=== PATIENT | female | born 1995 | race Caucasian/White ===

== ENCOUNTER 2021-10-30 09:36 | Emergency (ER) | payer OTHER, SELFPAY ==
[2021-10-30 10:06] VITALS: BP 117/75; PULSE 72; RESP 18; TEMP 36.2; O2SAT 98; BMI 36.0
--- NOTE | 2021-10-30 12:01 | DI.US.S_ITS ---
PROCEDURE: US BREAST LT LIMITED COMPARISON: None. INDICATIONS: left breast pain, no injury, breast fed 1 yr ago. FINDINGS: The entire left breast is scanned. No abnormalities are seen. No abnormal nodules or fluid collections are seen. IMPRESSION: No imaging explanation is found for the patient's presenting history breast pain. Dictated by: Primitivo Cedeno M.D. on 10/30/2021 at 11:44 Approved by: Primitivo Cedeno M.D. on 10/30/2021 at 11:44
--- NOTE | 2021-10-30 14:45 | ED.SKABFB ---
HPI - Skin/Abscess/Foreign Bdy <Kevon Kimball PA-C - Last Filed: 10/30/21 15:26> General Chief complaint: Skin/Abscess/Foreign Body Stated complaint: pain in lt breast x 1week Time Seen by Provider: 10/30/21 11:49 Source: patient Mode of arrival: Family Vehicle Limitations: no limitations History of Present Illness HPI narrative: Patient is a 26-year-old female who presents to the emergency room with complaint of left breast pain it started about a week ago. Patient states that she feels like her breast is harder than the right breast. Also feels like the pain is deep inside the breast and not on the surface. Denies any drainage from the breast and denies any major deformities in the breast. States that she left breast feed about 1 year ago she feels that the breast looks a little different than the right breast. She also states is more tender. Last menstrual period was about a month ago. Her periods are irregular because of her contraceptive device she uses. Related Data Allergies Allergy/AdvReac Type Severity Reaction Status Date / Time No Known Drug Allergies Allergy Verified 10/30/21 10:10 Review of Systems <Kevon Kimball PA-C - Last Filed: 10/30/21 15:26> Review of Systems Narrative: R.O.S.: General: No fever, chills or fatigue. Cardiovascular: No chest pain or palpitations Respiratory: No S.O.B. HEENT: No congestion, ear pain, rhinorrhea, sore throat or tinnitus Gastrointestinal: No nausea or vomiting Skin: Left-sided breast discomfort Musculoskeletal: No pain in muscles or joints, no limitation of range of motion, no paresthesia or numbness. ?? Neurological: Awake, alert and in not apparent distress. No Headaches, changes in vision or other related neurological concerns. Patient History <Kevon Kimball PA-C - Last Filed: 10/30/21 15:26> Social History Smoking Status: Never smoker Smoking Status: Never smoker alcohol intake frequency: 0-2 drinks per day Substance Use Type: does not use Exam <VANCE Stevens Last Filed: 10/30/21 15:26> Narrative Exam Narrative: Physical Exam: ? General: normal appearance, well developed, well nourished, alert, and awake. Not in acute distress. ? Head: Normocephalic, no lesions. Chest: Lungs CTAB, no rales, rhonchi or wheezes. ?? Heart: RRR, no murmurs, rubs or gallops. Eyes: PERRLA, EOM's full, conjunctivae clear. ? Neuro: Physiological, no localizing findings, CN3-12 intact. ?? Extremities: Warm, well perfused, FROM, no deformities, no edema. ?? Skin: Normal, no rashes, no lesions noted. ?? PSYCHIATRIC: The mood is good, no blunted affect. Speech is clear. Thought process is linear, thought content is appropriate. The voice is without significant inflection. Gastrointestinal: Soft; NT; ND; Pos BS with Neg. rebound tenderness. No scars or major deformities noted on Visual Inspection. Breast: Bilateral breath are symmetrical with no visual deformities noted. No masses or abnormalities discovered on palpation. Breast is however tender to touch on the distal lateral and superior lateral areas proximal to the areola and nipple. The breast also have no drainage and no erythema noted on visual inspection. Initial Vital Signs Initial Vital Signs: Vital Signs Temperature 97.2 F L 10/30/21 10:06 Pulse Rate 72 10/30/21 10:06 Respiratory Rate 18 10/30/21 10:06 Blood Pressure 117/75 10/30/21 10:06 Pulse Oximetry 98 10/30/21 10:06 Oxygen Delivery Method 10/30/21 10:06 <DO Jaquelin Zabala Last Filed: 11/05/21 08:09> Initial Vital Signs Initial Vital Signs: Vital Signs Temperature 97.2 F L 10/30/21 10:06 Pulse Rate 72 10/30/21 10:06 Respiratory Rate 18 10/30/21 10:06 Blood Pressure 117/75 10/30/21 10:06 Pulse Oximetry 98 10/30/21 10:06 Oxygen Delivery Method 10/30/21 10:06 Course <Kevon Kimball PA-C - Last Filed: 10/30/21 15:26> Orders Ordered: ED Orders 10/30/21 12:01 breast LT limited Stat Vital Signs Vital signs: Vital Signs - 8 hr 10/30/21 10:06 Temperature 97.2 F L Pulse Rate 72 Respiratory Rate 18 Blood Pressure 117/75 Pulse Oximetry 98 Oxygen Delivery Method Room Air <DO Jaquelin Zabala Last Filed: 11/05/21 08:09> Orders Ordered: ED Orders 10/30/21 12:01 US breast LT limited Stat Vital Signs Vital signs: Vital Signs - 8 hr 10/30/21 10:06 Temperature 97.2 F L Pulse Rate 72 Respiratory Rate 18 Blood Pressure 117/75 Pulse Oximetry 98 Oxygen Delivery Method Room Air MDM - Skin/Abscess/Foreign Bdy <Kevon Kimball PA-C - Last Filed: 10/30/21 15:26> Lab Data Labs: Point of Care Testing Test Results Negative Imaging Data US breast: Radiologist's Impression: PROCEDURE: US BREAST LT LIMITED ? COMPARISON: None. ? INDICATIONS: left breast pain, no injury, breast fed 1 yr ago. ? FINDINGS: The entire left breast is scanned.? No abnormalities are seen.? No abnormal nodules or fluid collections are seen. ? ? ? IMPRESSION: No imaging explanation is found for the patient's presenting history breast pain. ? ? ? Dictated by: Primitivo Cedeno M.D. on 10/30/2021 at 11:44 ? ? Approved by: Primitivo Cedeno M.D. on 10/30/2021 at 11:44 ? MDM Narrative Medical decision making narrative: Patient is a 26-year-old female who is in emergency room today with complaint of left-sided breast pain it started about a week ago. Last menstrual period was about 1 month ago. It is not breast fed about 1 year. Takes contraceptives and does not think she is at this time. Ultrasound was done and was negative for foreign body or urgent concerns at this time. Urinalysis ordered to rule out . test negative patient to be discharged and follow up with her shoulder boner provider. Patient agrees with this plan <Ira Covarrubias DO - Last Filed: 11/05/21 08:09> Lab Data Labs: Point of Care Testing Test Results Negative Discharge Plan Departure Patient Disposition: Home Clinical Impression: Breast pain Instructions: DI for Breast Pain (Mastalgia) Activity Restrictions/Additional Instructions: *You have been diagnosed with pain in the left breast breast. Ultrasound did not reveal any foreign body or emergent concerns at this time. Urinalysis has been done to rule out and was negative for . I suggest you follow-up with your shoulder boner provider in regards to any non emergent concerns. Please return to the emergency room for any emergent concerns arise. *What to do: *Please continue to take your regular medications as directed. [ ] New medication prescriptions sent to your pharmacy: [ ] [ ] New medication written as a paper prescription [x] No new medications given *Please follow up with your primary care provider in 2-3 days, call for an appointment. Let them know you were seen in the Emergency Department and that we ask that you be seen in follow up. We will electronically transmit a record of today's note if your PCP is in our system *If you do not have a primary care provider please contact the [facility] Resource line at [phone]. They will ask some questions about your medical history and help get you set up with a doctor in the community. *Return to Emergency Department if you should have any new, worsening or concerning symptoms, such as [fever greater than 101 F, shaking chills, worsening pain, persistent vomiting or other bothersome symptoms] Referrals: ProviderGerman [Primary Care Provider] - Visit Report Forms: Patient Portal/API <Ira Covarrubias DO - Last Filed: 11/05/21 08:09> Cosign ED Attending Alyature Attestation: I was immediately available in the department for consultation. Documentation has been reviewed. Case was discussed. No obvious signs of infection. Recommended have mammogram for follow-up.
== END 2021-10-30 15:37 | disposition home or self-care (01) ==
PROVIDERS: Emergency Provider Physician Assistant
DX: N64.4 Mastodynia (principal)
CPT/HCPCS: 76642; 81025; 99281; 99283

== ENCOUNTER 2022-05-27 09:30 | Emergency (ER) | payer OTHER, SELFPAY ==
[2022-05-27 09:37] VITALS: BP 121/70; PULSE 78; RESP 19; TEMP 36.4; O2SAT 98; BMI 29.7
--- NOTE | 2022-05-27 09:39 | DI.RAD.S_ITS ---
PROCEDURE: XR KNEE RT 3V INDICATIONS: atraumatic pain TECHNIQUE: 3 views of the knee were acquired. COMPARISON: None. FINDINGS: Bones: No fractures or dislocations. No suspicious bony lesions. Soft tissues: No joint effusion. No suspicious soft tissue calcifications. IMPRESSION: No significant plain film abnormality is seen. If it would be helpful for clinical management decision making, please consider a dedicated, scheduled knee MRI for further evaluation (assuming that there is no contraindication). Dictated by: Primitivo Cedeno M.D. on 05/27/2022 at 9:38 Approved by: Primitivo Cedeno M.D. on 05/27/2022 at 9:39
--- NOTE | 2022-05-27 10:11 | ED.EXTPRO ---
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 She denies any injury. She went to knee while she was gardening 3 days ago and noticed pain almost immediately. No fever or chills. She is able to ambulate. But has noted some swelling inferiorly. Related Data Allergies Allergy/AdvReac Type Severity Reaction Status Date / Time No Known Drug Allergies Allergy Verified 10/30/21 10:10 Review of Systems Review of Systems ROS Unobtainable: All systems reviewed & are unremarkable except as noted in HPI and below Patient History Social History Smoking Status: Never smoker Smoking Status: Never smoker alcohol intake frequency: 0-2 drinks per day Substance Use Type: does not use Exam Initial Vital Signs Initial Vital Signs: Vital Signs Temperature 97.5 F L 05/27/22 09:37 Pulse Rate 78 05/27/22 09:37 Respiratory Rate 19 05/27/22 09:37 Blood Pressure 121/70 05/27/22 09:37 Pulse Oximetry 98 05/27/22 09:37 Oxygen Delivery Method Room Air 05/27/22 09:37 GENERAL: Well-appearing, well-nourished and in no acute distress. CARDIOVASCULAR: peripheral pulses in tact, cap refill <2 sec RESPIRATORY: No respiratory distress, speaks in full sentences without difficulty EXTREMITIES: Normal range of motion, no clubbing or edema. Neurovascularly intact Right lower extremity knee is stable patellar tendon swelling 3 cm x 1 and 0.5 cm no erythema mildly tender to touch, bedside ultrasound, by myself does show probable fluid collection NEUROLOGICAL: Cranial nerves II through XII grossly intact. Normal gait and speech. SKIN: Warm, dry, no petechiae, no rashes or lesions. Course Orders Ordered: ED Orders 05/27/22 09:39 XR knee RT 3V Stat Vital Signs Vital signs: Vital Signs - 8 hr 05/27/22 09:37 Temperature 97.5 F L Pulse Rate 78 Respiratory Rate 19 Blood Pressure 121/70 Pulse Oximetry 98 Oxygen Delivery Method Room Air MDM - Extremity (Nontraumatic) Imaging Data Extremity x-ray #1: Radiologist's Impression: PROCEDURE:? XR KNEE RT 3V ? INDICATIONS:? atraumatic pain ? TECHNIQUE:? 3 views of the knee were acquired.? ? COMPARISON:? None. ? FINDINGS:? ? Bones:? No fractures or dislocations.? No suspicious bony lesions.? ? Soft tissues:? No joint effusion.? No suspicious soft tissue calcifications.? ? ? IMPRESSION:? No significant plain film abnormality is seen. ? If it would be helpful for clinical management decision making, please consider a dedicated, scheduled knee MRI for further evaluation (assuming that there is no contraindication).? ? ? Dictated by: Primitivo Cedeno M.D. on 05/27/2022 at 9:38 ? ? Approved by: Primitivo Cedeno M.D. on 05/27/2022 at 9:39 ? MDM Narrative Medical decision making narrative: Patient healthy 26-year-old female history of Marcia Schlatter presents today with swelling. He has been ongoing for the last 3 days it is not erythematous she has no decreased range of motion probable prepatellar bursitis. At this time recommends only NSAIDs, ice and reaction. X-ray does not show any abnormality or fracture. Discharge Plan Departure Patient Disposition: Home Clinical Impression: Bursitis, prepatellar, right Instructions: Bursitis Activity Restrictions/Additional Instructions: *You have been diagnosed with prepatellar bursitis *What to do: At this time recommend ice compression, knee brace *Continue to take medications as directed Ibuprofen 800 mg every 8 hours for about 1 week with food *Follow up with your primary care provider in 2-3 days or call [phone] *Return to ER if you should have increasing swelling pain redness fever inability to bear weight or any new, worsening or concerning symptoms Referrals: ProviderGerman [Primary Care Provider] - Stand Alone Forms: Patient Portal/API
== END 2022-05-27 10:56 | disposition home or self-care (01) ==
PROVIDERS: Emergency Provider Emergency Medicine
DX: M70.41 Prepatellar bursitis, right knee (principal)
CPT/HCPCS: 73562; 99283

== ENCOUNTER 2022-08-30 14:39 | Emergency (ER) | payer OTHER, SELFPAY ==
[2022-08-30 14:42] VITALS: BP 139/94; PULSE 80; RESP 16; TEMP 36.6; O2SAT 99; BMI 33.6
--- NOTE | 2022-08-30 14:46 | ED_ITS ---
HPI - Skin/Abscess/Foreign Bdy <MIKE Mims - Last Filed: 08/30/22 17:11> General Chief complaint: Skin/Abscess/Foreign Body Stated complaint: rt breast pain t-3 Time Seen by Provider: 08/30/22 14:43 Source: patient Mode of arrival: Ambulatory Limitations: no limitations History of Present Illness HPI narrative: This is a 27-year-old female presents emergency department with a breaths lump in her right breast which has been progressively more painful over the last 3 days. She has 2 children at home, has a Mirena IUD in place, has a history of mastitis in the past and states that this feels differently, she is not at this time. She denies fever chills, denies any skin changes, states that she feels like it is deep but it is in her milk tissue. She st ates it is about the size of a dime, round and firm. She denies any nipple discharge, denies any rash. Related Data Allergies Allergy/AdvReac Type Severity Reaction Status Date / Time No Known Drug Allergies Allergy Verified 10/30/21 10:10 Review of Systems <MIKE Mims - Last Filed: 08/30/22 17:11> Review of Systems ROS Unobtainable: All systems reviewed & are unremarkable except as noted in HPI and below Patient History <MIKE Mims - Last Filed: 08/30/22 17:11> Social History Smoking Status: Never smoker Smoking Status: Never smoker alcohol intake frequency: 0-2 drinks per day Substance Use Type: does not use Exam <MIKE Mims - Last Filed: 08/30/22 17:11> Narrative Exam Narrative: Reviewed vitals signs and nursing notes. General: Pleasant, sitting upright, in no acute distress, well groomed, afebrile HEENT: symmetrical facial expressions, moist mucous membranes, neck is supple Chest: Right breast with discoloration or skin changes, proximally 03:00 o'clock lateral to the areola there is a medium to deep round firm nodule, presumably a cyst. Skin: brisk capillary refill, without rash or wound Neuro: clear speech and normal cognition, A&O x3, GCS 15, no focal motor or sensation deficits Initial Vital Signs Initial Vital Signs: Vital Signs Temperature 98 F 08/30/22 14:42 Pulse Rate 80 08/30/22 14:42 Respiratory Rate 16 08/30/22 14:42 Blood Pressure 139/94 H 08/30/22 14:42 Pulse Oximetry 99 08/30/22 14:42 Oxygen Delivery Method Room Air 08/30/22 14:42 <Homero Catherine DO - Last Filed: 08/30/22 15:43> Initial Vital Signs Initial Vital Signs: Vital Signs Temperature 98 F 08/30/22 14:42 Pulse Rate 80 08/30/22 14:42 Respiratory Rate 16 08/30/22 14:42 Blood Pressure 139/94 H 08/30/22 14:42 Pulse Oximetry 99 08/30/22 14:42 Oxygen Delivery Method Room Air 08/30/22 14:42 Course <MIKE Mims - Last Filed: 08/30/22 17:11> Orders Ordered: ED Orders 08/30/22 14:54 US breast RT limited Stat Vital Signs Vital signs: Vital Signs - 8 hr 08/30/22 14:42 Temperature 98 F Pulse Rate 80 Respiratory Rate 16 Blood Pressure 139/94 H Pulse Oximetry 99 Oxygen Delivery Method Room Air <Homero Catherine DO - Last Filed: 08/30/22 15:43> Orders Ordered: ED Orders 08/30/22 14:54 US breast RT limited Stat Vital Signs Vital signs: Vital Signs - 8 hr 08/30/22 14:42 Temperature 98 F Pulse Rate 80 Respiratory Rate 16 Blood Pressure 139/94 H Pulse Oximetry 99 Oxygen Delivery Method Room Air MDM - Skin/Abscess/Foreign Bdy <MIKE Mims - Last Filed: 08/30/22 17:11> Lab Data Labs: Point of Care Testing Test Results Negative MDM Narrative Medical decision making narrative: Chief Complaint: Right breast pain Primary historian: Patient Multiple etiologies for patient's complaint considered including, but not sweet ited to: Cyst, mastitis, abscess, malignancy, normal breast, , tender lymph node. I have independently reviewed the patient's vital signs and nursing notes as well as prior records if available. My interpretation of imaging: Ultrasound is negative for acute abnormality POC is negative Patient's breast ultrasound was negative for acute abnormality, recommend ibuprofen and Tylenol as needed, hydration, this could be a tender lymph node. Patient states stemming in this relieved about this not being anything dangerous. She will discharge home. Social considerations that may affect disposition: none Questions are addressed and there is agreement with the plan and for follow-up. I consulted with the ED attending physician Dr. Catherine as needed for higher level of care considerations and they were available for discussion and recommendations regarding plan of care and diagnostic testing. Patient is appropriate for outpatient management. <Homero Catherine DO - Last Filed: 08/30/22 15:43> Lab Data Labs: Point of Care Testing Test Results Negative Discharge Plan Departure Patient Disposition: Home Clinical Impression: Acute breast pain Instructions: DI for Breast Pain (Mastalgia) Activity Restrictions/Additional Instructions: *You have been diagnosed with a rest on the right, no lump, bump or cyst, no evidence of infection. This should start to get better, stay hydrated, enjoy your workup, proud of your doing. Thank you for coming in for evaluation, lymph node that is tender if it got irritated. Try not to do too much massage and just see how this resolves. *What to do: *Please continue to take your regular medications as directed. [ ] New medication prescriptions sent to your pharmacy: [ ] [ ] New medication written as a paper prescription [x ] No new medications given *Please call and schedule follow up with your primary care provider in 2-3 days, at least for an update. Let them know you were seen in the Emergency Department for the above problem. We will electronically transmit a record of today's note if your PCP or specialist is in our system. *If you do not have a primary care provider please contact [phone] to establish care with one of the [facility] primary care providers. *Return to the Emergency Department for worsening symptoms, inability to keep liquids down, fever greater than 101F, chills, or other concerning symptom. Referrals: Provider,German CHU [Primary Care Provider] - Stand Alone Forms: Patient Portal/API <Homero Catherine DO - Last Filed: 08/30/22 15:43> Cosign ED Attending Alyature Attestation: Dr Catherine Co-Sign Statement: I was available for consultation during this patient's emergency department visit. This chart is signed by myself for administrative purposes only. I did not have direct contact with this patient during this visit. They were seen independently by the APC.
--- NOTE | 2022-08-30 14:54 | DI.US.S_ITS ---
LIMITED ULTRASOUND OF RIGHT BREAST: 08/30/2022 CLINICAL: Focal right breast pain and palpable lump felt by provider. No prior exams were available for comparison. Color flow and real-time ultrasound of the right breast 12-6 o'clock, and retroareolar regions were performed. No significant abnormalities were seen sonographically in the right breast. IMPRESSION: NEGATIVE There is no sonographic evidence of malignancy. There is no abnormality seen in the right breast to correspond with the area of clinical concern, however, clinical correlation and clinical followup are recommended. No drainable abscess identified. This exam was interpreted at Station ID: [id number]. Electronically Signed By: Sagar Quinones M.D. lc/:08/30/2022 15:38:24 letter sent: Clinical Evaluation Ultrasound BI-RADS: 1 Negative
== END 2022-08-30 15:29 | disposition home or self-care (01) ==
PROVIDERS: Emergency Provider Nurse Practitioner Critical Care Medicine
DX: N64.4 Mastodynia (principal)
CPT/HCPCS: 76642; 81025; 99283